=== PATIENT | female | born 1980 | race Caucasian/White ===

== ENCOUNTER 2017-02-19 11:18 | Emergency (ER) | payer OTHER ==
[~2017-02-19] VITALS: Ht 162.6 cm; Wt 70.9 kg
[2017-02-19 12:36] LABS: HEMATOCRIT 39.6 % (36.0-46.0); MCH 33.7 PG (29.0-34.0); MCHC 35.4 G/DL (30.0-36.0); MCV 95.4 FL (83-99); PLATELET COUNT 284 K/uL (156-360); RBC DIS.WIDTH-CV 11.8 % (11.8-14.6); RBC DIS.WIDTH-SD 40.8 % (39-53); RED BLOOD COUNT 4.15 M/uL (3.80-5.20); WHITE BLOOD COUNT 5.9 K/uL (4.1-10.2)
[2017-02-19 12:44] LABS: CHLORIDE 105 mEq/L (99-109); POTASSIUM 3.6 mEq/L (3.7-5.4); SODIUM 140 mEq/L (136-147)
[2017-02-19 12:46] LABS: GLUCOSE 87 mg/dL (70-99)
[2017-02-19 12:47] LABS: ANION GAP 12 MEQ/L (2-14)
[2017-02-19 12:48] LABS: TOTAL BILIRUBIN 0.5 mg/dL (0.0-1.0)
[2017-02-19 12:50] LABS: ALKALINE PHOSPHATASE 74 IU/L (3-129); GFR ESTIMATE (CALCULATED) > 59 mL/min/
[2017-02-19 12:51] LABS: UREA NITROGEN (BUN) 8 mg/dL (9-23)
[2017-02-19 12:59] LABS: QUANTITATIVE HCG < 4.0 MIU/ML
[2017-02-19 13:44] LABS: LIPASE 22 U/L (1.0-51.0)
[2017-02-19 14:26] LABS: ADD MIUA? NO; BILIRUBIN NEGATIVE; BLOOD NEGATIVE; COLOR STRAW ((YELLOW)); GLUCOSE (STRIP) NEGATIVE; KETONES NEGATIVE; LEUKOCYTES NEGATIVE; NITRITE NEGATIVE; PROTEIN (STRIP) NEGATIVE; SPECIFIC GRAVITY 1.005 (1.000-1.030); UCUL ADDED? NO; UROBILINOGEN 0.2 MG/DL (0.2-1.0)
[2017-02-19] MEDS ORDERED: ZOFRAN ODT4 MG PO (15:20)
[2017-02-19] MEDS ORDERED: REGLAN10 MG PO (15:20)
[2017-02-19] MEDS ORDERED: BENTYL20 MG PO (15:42)
[2017-02-19 17:29] VITALS: BP 108/54
== END 2017-02-19 17:30 | disposition home or self-care (01) ==
LOC: EME 11:18
DX: R10.11 Right upper quadrant pain (principal); K82.8 Other specified diseases of gallbladder; Z72.0 Tobacco use
CPT/HCPCS: 76705; 80053; 81003; 83690; 84702; 85027; 99281; 99284